=== PATIENT | male | born 1980 | race Caucasian/White ===

== ENCOUNTER 2018-03-22 10:15 | Day surgery (SDC) | payer BC ==
--- NOTE | 2018-03-21 16:33 | PDOC1 ---
History and Physical Date of Admission Date of Admission DATE: 03/22/18 Identification/Chief Complaint Chief Complaint left 5th finger partial amputation Source Source: Chart review, Patient History of Present Illness History of Present Illness The patient is a 38 y/o male with left 5th finger amputation. The top part of the finger was taken off when a car engine fell on his finger on 03.20.2018. He went to [facility] ER following the injury. He is currently on oral antibiotics. He would like to return to work as soon as possible. He arrived accompanied by his . He smokes about 1/2 packs of cigarettes daily. He notes that Percocet makes him nauseous. Past Medical History Cardiovascular: No pertinent hx Pulmonary: No pertinent hx GI: No pertinent hx Past Surgical History Past Surgical History: No pertinent history Family History Family History: No Significant Social History Smoke: <1 pack per day (1/2 ppd) ALCOHOL: none Drugs: None Allergies Allergies: Coded Allergies: No Known Drug Allergies (Unverified , 03/21/18) Physical Exam General: Alert, Oriented X3, Cooperative, No acute distress HEENT: Atraumatic, EOMI Lungs: Normal air movement Heart: RRR Abdomen: Soft Extremities: No clubbing, No cyanosis, Normal pulses, Other (Left 5th fingertip amputation through the middle portion of the distal phalanx. Entire fingertip avulsed. Nail matrix intact. Guillotine-type amputation with minimal crushing of the remaining soft tissues. ) Skin: No rashes, No breakdown Neuro: Normal speech, Sensation intact Psych/Mental Status: Mental status NL, Mood NL VTE Prophylaxis Ordered VTE Prophylaxis Devices: Yes VTE Pharmacological Prophylaxi: Yes Assessment/Plan Assessment/Plan Traumatic amputation of left 5th fingertip. Dr. White and the patient discussed surgical treatment of his left 5th finger with a secondary amputation with neurectomies and direct closure. The risks of surgery including the risk of undergoing anesthesia, bleeding, infection were discussed. He exhibited understanding of the risks and benefits of surgery, and all questions were answered. I encouraged him to quit or try to cut back the amount of cigarettes he smokes as this delays healing. Follow up with me 10-14 days after surgery. He will return to work on 12.21.2017. CRISTINA MORALES Mar 21, 2018 16:33
[~2018-03-22] VITALS: Ht 180.3 cm; Wt 105.2 kg
[~2018-03-22 10:15] MED LIST: BUPIVACAINE-EPI 0.25%-1:200000 50 ML VIAL. ONE; IBUP-1027 PO; IV RINGERS,LACTATED 1000ML 1,000 ML IV SCH; LIDOCAINE 1% PF 2 ML VIAL. ID PRN; MORPHINE SULFATE 2 MG/ML DISP.SYRIN. IV PRN; MULT-404 PO; ONDANSETRON PF 4 MG/2 ML VIAL. IV PRN; PROCHLORPERAZINE 10 MG/2 ML VIAL. IV PRN; TRAM50TA PO; fentaNYL PF VIAL 100 MCG/2 ML VIAL IV PRN
[2018-03-22] MEDS ORDERED: MIDAZOLAM HCL/PF 2 MG/2 ML VIAL. ONE (11:59)
[2018-03-22] MEDS ORDERED: PROPOFOL 20 ML IV ONE (12:00)
[2018-03-22] MEDS ORDERED: ceFAZolin 2GM PREMIX 2 GM/50 ML BAG IV ONE (12:00)
[2018-03-22] MEDS ORDERED: LIDOCAINE 2% PF Vial for OR 5 ML VIAL. ONE (12:00)
[2018-03-22] MEDS ORDERED: fentaNYL PF VIAL 100 MCG/2 ML VIAL ONE (12:00)
--- NOTE | 2018-03-22 12:58 | PDOC4 ---
Operative Note Operative Note Date of Procedure: March 22, 2018 Pre-Op Diagnosis: Traumatic small finger amputation S68.119A Post-Op Diagnosis: Same Procedure: CPT 15874 amputation left little finger, secondary, in the distal phalanx, including neurectomies, with direct closure Surgeon: Ashley White MD Anesthesia: General EBL: 5 mL Specimens Obtained: none Complications: none Drains: none Indications for Procedure: The patient is a 38-year old who amputated the left little fingertip when a car engine fell on it. There is exposed bone. I recommended irrigation and debridement with completion amputation, with shortening of the bone to allow a direct primary closure of the digit. The patient and I discussed the risks, benefits and alternatives of surgery. We discussed the potential risks of infection, hypersensitivity, need for further surgery or other potential surgical or anesthetic complications. All of his questions about surgery were answered and he desired to proceed. A written consent was obtained. Procedure in Detail: The patient was identified in the preoperative holding area. The correct left little finger was marked by me. The patient was taken to the operating room where general anesthesia was used. The patient was positioned supine on the operating table. Preoperative antibiotics were given intravenously. A timeout procedure was performed. Limb was prepared in sterile fashion with Betadine. Sterile drapes were applied. A Roxane tourniquet was used around the base of the small finger. The left little finger was treated with shortening amputation. I made fishmouth type flaps, removing a wedge of skin medially and laterally. I performed direct neurectomies, and used electrocautery for hemostasis. The bone was shortened, back to the mid portion of the distal phalanx using a bone cutter and rongeurs. Debridement was performed of the nonviable and foreign material. The distal flaps were fashioned into a fishmouth U shape for closure. The tourniquet was released. Pulsatile bleeding was noted. Electrocautery was used for hemostasis. 0.25% Marcaine with epinephrine was injected at the skin edges, as well as in a digital block fashion. Copious irrigation was again used. The fingertip was now closed in a single layer with 4-0 Nylon interrupted sutures, with complete closure. I then applied Xeroform and TubeGauze. Needle and sponge counts were correct. There were no apparent complications. ASHLEY WHITE MD Mar 22, 2018 12:58
[2018-03-22] MEDS ORDERED: traMADol 50 MG TABLET PO ONE (13:30)
[2018-03-22 14:00] VITALS: BP 118/74
== END 2018-03-22 14:00 | disposition home or self-care (01) ==
LOC: SURG 10:15
PROVIDERS: ATTEND Orthopaedic Surgery
DX: S68.117A Complete traumatic metacarpophalangeal amputation of left little finger, initial encounter (principal); F17.210 Nicotine dependence, cigarettes, uncomplicated; Z79.899 Other long term (current) drug therapy; E66.9 Obesity, unspecified; Z68.32 Body mass index [BMI] 32.0-32.9, adult; K08.409 Partial loss of teeth, unspecified cause, unspecified class; W20.8XXA Other cause of strike by thrown, projected or falling object, initial encounter; Y93.89 Activity, other specified; Y92.89 Other specified places as the place of occurrence of the external cause; Y99.8 Other external cause status
CPT/HCPCS: 26951; 82962; A7015; J2001; J2250; J2704; J3010; J0690